=== PATIENT | female | born 1970 | race Caucasian/White ===

== ENCOUNTER 2020-12-08 15:53 | Emergency (ER) | payer OTHER ==
[~2020-12-08] VITALS: Ht 160 cm; Wt 111.1 kg
== END 2020-12-08 19:03 | disposition home or self-care (01) ==
LOC: FER 15:53
DX: U07.1 COVID-19 (principal); I10 Essential (primary) hypertension; Z87.09 Personal history of other diseases of the respiratory system; Z23 Encounter for immunization
CPT/HCPCS: M0243; Q0244

== ENCOUNTER 2020-12-10 13:22 | Emergency (ER) | payer OTHER ==
[~2020-12-10] VITALS: Ht 162.6 cm; Wt 108.9 kg
== END 2020-12-10 16:16 | disposition home or self-care (01) ==
LOC: FER 13:22
DX: U07.1 COVID-19 (principal); F41.9 Anxiety disorder, unspecified; I10 Essential (primary) hypertension; E66.9 Obesity, unspecified
CPT/HCPCS: 99284